=== PATIENT | female | born 1975 | race Hispanic/Latino ===

== ENCOUNTER 2018-05-21 14:51 | Emergency (ER) | payer OTHER ==
[~2018-05-21] VITALS: Ht 162.6 cm; Wt 66.7 kg
[2018-05-21] MEDS ORDERED: EYE IRRIGATION (OPTH) 120 ML BTL ONE (15:22)
[2018-05-21] MEDS ORDERED: FLUORESCEIN SOD(OPTH) 1 MG STRP ONE (15:22)
[2018-05-21] MEDS ORDERED: TETRACAINE HCL 0.5% OPTH SOLN 4 ML BTL ONE (15:22)
[2018-05-21] MEDS ORDERED: TETRACAINE HCL 0.5% OPTH SOLN 4 ML BTL OP ONE (15:30)
== END 2018-05-21 15:37 | disposition home or self-care (01) ==
LOC: ER 14:51
DX: H11.32 Conjunctival hemorrhage, left eye (principal)
CPT/HCPCS: 99283